=== PATIENT | female | born 1975 | race Caucasian/White ===

== ENCOUNTER → 2020-03-17 | Outpatient (CLI) | payer OTHER ==
[2020-03-19 16:11] LABS: ALDOLASE 5.3 U/L (3.3-10.3)
== END ==
LOC: LAB 15:38
PROVIDERS: Internal Medicine
DX: M25.50 Pain in unspecified joint (principal); D89.89 Other specified disorders involving the immune mechanism, not elsewhere classified; R76.8 Other specified abnormal immunological findings in serum; R79.82 Elevated C-reactive protein (CRP); L65.9 Nonscarring hair loss, unspecified; M79.10 Myalgia, unspecified site; E55.9 Vitamin D deficiency, unspecified; R53.83 Other fatigue
CPT/HCPCS: 73130; 82085; 82550; 82728; 83520; 85652; 86140